=== PATIENT | female | born 1985 | race Asian ===

== ENCOUNTER 2017-05-25 03:43 | Emergency (ER) | payer OTHER | END 2017-05-25 05:19 | disposition home or self-care (01) | LOC: ERS 03:43 | DX: J02.9 Acute pharyngitis, unspecified (principal) | CPT/HCPCS: 87081; 87430; 99283 ==

== ENCOUNTER 2017-05-27 12:12 | Emergency (ER) | payer OTHER ==
[2017-05-27 12:40] LABS: #Basophils 0.1 thou/uL (0.0-0.2); #Eosinphils 0.1 thou/uL (0.0-0.7); #Lymphocytes 4.8 thou/uL (1.20-3.40); #Monocytes 0.8 thou/uL (0.11-0.59); #Neutrophils 4.9 thou/uL (1.40-6.50); %Basophils 1.1 % (0.0-1.0); %Eosinophils 0.9 % (0.0-10.0); %Lymphocytes 44.9 % (21.0-51.0); %Monocytes 7.6 % (0.0-10.0); %Neutrophils 45.5 % (42.0-75.0); Hemoglobin 12.5 g/dL (12.0-16.0); Mean Corpuscular HGB CONC 32.4 g/dL (32.0-36.0); Mean Corpuscular Hemoglobin 28.1 pg (27.0-31.0); Mean Corpuscular Volume 86.7 fl (81.0-99.0); Mean Platelet Volume 8.1 fL (7.4-10.4); Platelet Count 303 thou/uL (130-400); RBC Distribution Width 11.9 % (11.5-14.5); Red Blood Cell (RBC) Count 4.47 mill/uL (4.20-5.40); White Blood Cell (WBC) Count 10.7 thou/uL (4.8-10.8)
[2017-05-27 13:01] LABS: BHCG - Serum Negative (NEGATIVE); Pregs Control Background? CLEAR/WHITE (CLR/WHITE); Pregs Control Bar Appear? YES (CONTROL BAR)
== END 2017-05-27 15:09 | disposition home or self-care (01) ==
LOC: ERS 12:12
DX: N39.0 Urinary tract infection, site not specified (principal); N93.9 Abnormal uterine and vaginal bleeding, unspecified
CPT/HCPCS: 36415; 84703; 85025; 99284

== ENCOUNTER 2019-12-27 09:15 | Inpatient (IN) | payer BC, MEDICAID, OTHER ==
[2019-12-27 10:19] VITALS: BMI 26.4
[2019-12-27] MEDS ORDERED: Ondansetron PF 4 MG/2 ML Vial IVP PRN ×3 (10:23→18:50)
[2019-12-27] MEDS ORDERED: Promethazine HCl 25 MG/ML VIAL IM PRN ×2 (10:23→17:57)
[2019-12-27] MEDS ORDERED: hydrALAZINE 20 MG/ML VIAL SLOW IVP PRN ×2 (10:23→18:50)
[2019-12-27] MEDS ORDERED: CEFAZOLIN 2 GM in Premix Bag 1 BAG IVPB SCH (10:30)
[2019-12-27] MEDS ORDERED: Bicitra 30 ML UDCUP PO SCH (10:30)
[2019-12-27 11:07] LABS: Mean Corpuscular HGB CONC 34.5 g/dL (32.0-36.0); Mean Corpuscular Hemoglobin 30.6 pg (27.0-31.0); Mean Corpuscular Volume 88.5 fL (78.0-98.0); Mean Platelet Volume 9.8 fL (7.4-10.4); Platelet Count 244 thou/uL (130-400); RBC Distribution Width 12.4 % (11.5-14.5); Red Blood Cell (RBC) Count 4.57 mill/uL (4.20-5.40); White Blood Cell (WBC) Count 9.4 thou/uL (4.8-10.8)
[2019-12-27 11:43] LABS: HBSAg Index 0.18 S/CO (0-0.99); Hep B Surf Ag Non-Reactive S/CO (NonReactive); Syphilis Antibody Nonreactive (Nonreactive); Syphilis Antibody Index 0.03 S/CO (<1.00 Non-Reactive)
[2019-12-27 12:43] LABS: INR-International Normal Ratio 0.8; Prothrombin Time 10.9 sec (12.0-14.7)
[2019-12-27 12:44] LABS: PTT 27.3 sec (22.9-36.1)
[2019-12-27 13:13] LABS: ALT (SGPT) 476 U/L (8-55); AST (SGOT) 200 U/L (5-34); Albumin 3.8 g/dL (3.5-5.0); Alkaline Phosphatase 280 U/L (40-110); Anion Gap 16 mmol/L (10-20); BUN (Urea Nitrogen) 4 mg/dL (7.0-18.7); Bilirubin, Total 1.2 mg/dL (0.2-1.2); Calc. Creatinine Clearance 159 mL/min (70-130); Calcium 9.3 mg/dL (7.8-10.44); Carbon Dioxide 19 mmol/L (22-29); Chloride 108 mmol/L (98-107); Estimated GFR-MDRD Greater than 90; Globulin 3.4 g/dL (2.4-3.5); Glucose 80 mg/dL (70-105); Protein, Total 7.2 g/dL (6.0-8.3); Sodium 139 mmol/L (136-145)
[2019-12-27] MEDS: Lactated Ringer's 1,000 ML IV SCH ×2 (13:32→22:20)
[2019-12-27] MEDS ORDERED: Fentanyl 100 MCG/2 ML VIAL ONE (16:07)
[2019-12-27] MEDS ORDERED: MORPHINE 5 MG/10 ML PF VIAL ONE (16:07)
--- NOTE | 2019-12-27 16:07 | PDOC.LDHP ---
Labor and Delivery H&P Chief complaint: other (elevated LFT and itching) HPI: 34yo at 38w3d by LMP sent from home due to lab finding of elevated LFTs in 400s and new onset palmar itching. Denies sx PIH. Current gestational age (weeks): 38 Due date: 01/07/20 Dating criteria: last menstrual period Grav: 3 Para: 1 Current complications: none Abnormal US findings: No Past Medical History: denies Current medications: pre-ellie vitamins Previous surgical history: low tranverse CS Allergies/Adverse Reactions: Allergies Allergy/AdvReac Type Severity Reaction Status Date / Time No Known Allergies Allergy Verified 12/27/19 10:05 Social history: none - Physical Exam Vital signs reviewed and normal: yes General: NAD Heart: RRR Lungs: CTAB Abdomen: gravid Extremeties: no edema FHT: category 1 Falls View contractions every: none - OB Labs Blood type: A RH: positive Antibody Screen: negative HIV: negative RPR: negative HEPSAg: negative 1 hour GCT: negative GBS: negative Urine drug screen: negative - Assessment L&D Assessment: medically indicated induction (repeat CS) - Plan Plan: admit to L&D, to OR for section, informed consent obtained, anesthesia consult for pain management
[2019-12-27] MEDS ORDERED: Dexamethasone 4 mg/ml Vial ONE (16:08)
[2019-12-27] MEDS ORDERED: Oxytocin 10 UNITS/ML VIAL ONE ×2 (16:08→16:09)
[2019-12-27] MEDS ORDERED: PHENYLEPHRINE-NS 100 MCG/ML 10 ML SYRINGE ONE (16:08)
[2019-12-27] MEDS ORDERED: Ketorolac Tromethamine 30 MG/ML VIAL ONE (16:08)
[2019-12-27] MEDS ORDERED: EPHEDRINE 25 MG/5 ML SYRINGE ONE (16:08)
[2019-12-27] MEDS ORDERED: Ondansetron PF 4 MG/2 ML Vial ONE (16:09)
--- NOTE | 2019-12-27 17:02 | PDOC.OPDEL ---
OB Operative/Delivery Note Delivery Dr/Surgeon: Eliezer Assist: Charlie Pre-Delivery Diagnosis: medically indicated induction (cholestasis) Procedure/Post Delivery Dx: repeat low transverse CS Weeks gestation: 38 Anesthesia: spinal - Additional Findings/Plan Placenta delivered: spontaneous findings: low transverse hysterotomy without extension, normal uterus, normal tubes, normal ovaries Post delivery plan: routine recovery
[2019-12-27] MEDS ORDERED: Methylergonovine 0.2 MG/ML VIAL ONE (17:26)
[2019-12-27] MEDS ORDERED: Ketorolac Tromethamine 30 MG/ML VIAL IVP PRN (17:57)
[2019-12-27] MEDS ORDERED: HYDROmorphone 2 MG/ML VIAL SLOW IVP PRN (17:57)
[2019-12-27] MEDS ORDERED: Ondansetron HCl/PF 4 MG/2 ML Vial IVP PRN (17:57)
[2019-12-27] MEDS ORDERED: Naloxone HCl 0.4 mg/ml Vial IV PRN (17:57)
[2019-12-27] MEDS ORDERED: Naloxone HCl 0.4 mg/ml Vial IVP PRN ×2 (17:57)
[2019-12-27] MEDS ORDERED: Meperidine HCl/PF 25 MG/ML VIAL SLOW IVP PRN (17:57)
[2019-12-27] MEDS ORDERED: diphenhydrAMINE 50 MG/ML VIAL IVP PRN (17:57)
[2019-12-27] MEDS ORDERED: L&D-Morphine 4 MG/ML VIAL SLOW IVP PRN (17:57)
[2019-12-27] MEDS ORDERED: Promethazine HCl 25 MG SUPP PR PRN (17:57)
[2019-12-27] MEDS ORDERED: Communication Order-Pharmacy FS SCH (18:00)
[2019-12-27] MEDS ORDERED: diphenhydrAMINE 25 MG CAP PO PRN (18:50)
[2019-12-27] MEDS ORDERED: Acetaminophen 325 MG TAB PO PRN (18:50)
[2019-12-27] MEDS ORDERED: HYDROcodone/Acetaminophen 5/325 mg Tablet PO PRN (18:50)
[2019-12-27] MEDS ORDERED: Bisacodyl 10 MG SUPP PR PRN (18:50)
[2019-12-27] MEDS ORDERED: Lanolin Ointment 7 GM TUBE TOP PRN (18:50)
[2019-12-27] MEDS: Docusate Calcium (SURFAK) 240 MG CAP PO SCH (22:19)
[2019-12-27] MEDS: Ferrous Sulfate 325 MG TAB PO SCH (22:20)
[2019-12-28 06:19] LABS: Hemoglobin 11.4 g/dL (12.0-16.0); Mean Corpuscular HGB CONC 33.5 g/dL (32.0-36.0); Mean Corpuscular Hemoglobin 29.9 pg (27.0-31.0); Mean Corpuscular Volume 89.2 fL (78.0-98.0); Mean Platelet Volume 9.5 fL (7.4-10.4); Platelet Count 211 thou/uL (130-400); RBC Distribution Width 12.3 % (11.5-14.5); Red Blood Cell (RBC) Count 3.83 mill/uL (4.20-5.40); White Blood Cell (WBC) Count 14.3 thou/uL (4.8-10.8)
[2019-12-28 06:41] LABS: ALT (SGPT) 556 U/L (8-55); AST (SGOT) 327 U/L (5-34); Albumin 2.8 g/dL (3.5-5.0); Alkaline Phosphatase 201 U/L (40-110); Anion Gap 14 mmol/L (10-20); BUN (Urea Nitrogen) 4 mg/dL (7.0-18.7); Bilirubin, Total 1.8 mg/dL (0.2-1.2); Calc. Creatinine Clearance 168 mL/min (70-130); Calcium 8.5 mg/dL (7.8-10.44); Carbon Dioxide 22 mmol/L (22-29); Chloride 104 mmol/L (98-107); Estimated GFR-MDRD Greater than 90; Globulin 2.7 g/dL (2.4-3.5); Glucose 66 mg/dL (70-105); Potassium 3.7 mmol/L (3.5-5.1); Protein, Total 5.5 g/dL (6.0-8.3); Sodium 136 mmol/L (136-145)
--- NOTE | 2019-12-28 07:47 | OP ---
DATE OF PROCEDURE: 12/27/2019 ADDENDUM: I was present and scrubbed to assist the uncomplicated repeat low-transverse with Dr. Gracie Martins. Please see her note for full details. Job ID: [id number]
--- NOTE | 2019-12-28 08:02 | PDOC.PP ---
Post Progress Note Post Day #: 1 PO intake tolerated: yes Flatus: yes Ambulation: no Vital Signs (12 hours) Temp Pulse Resp BP Pulse Ox 12/28/19 03:55 98.2 F 69 18 97/52 L 98 12/27/19 22:45 98.5 F 72 18 126/83 98 12/27/19 21:35 98.3 F 64 18 144/75 H 97 12/27/19 20:25 98.5 F 71 18 136/81 98 Weight Weight 154 lb - Physical Examination General: NAD Respiratory: non-labored breathing Abdominal: no distention, appropriately TTP Extremities: negative homans (B) Skin: CS incision dry & intact Neurological: no gross focal deficits Psychiatric: normal affect Result Diagrams: 12/28/19 05:59 12/28/19 05:59 Additional Labs: Post Labs Blood Type A POSITIVE 12/27/19 11:21 Hep Bs Antigen Non-Reactive S/CO (NonReactive) 12/27/19 10:55 - Assessment/Plan POD1 s/p RCS VSSAF Doing well, appropriate milestones, routine advances LFT trending down Hgb nl postop 11.4 Rh pos Rub unknown, pending cont postop care
--- NOTE | 2019-12-28 08:47 | OP ---
DATE OF PROCEDURE: 12/27/2019 PREOPERATIVE DIAGNOSES: 1. Intrauterine at 38 weeks and 3 days. 2. Suspected cholestasis. 3. Prior section x1, declines trial of labor. POSTOPERATIVE DIAGNOSES: 1. Intrauterine at 38 weeks and 3 days. 2. Suspected cholestasis. 3. Prior section x1, declines trial of labor. PROCEDURE PERFORMED: Repeat low-transverse section via Pfannenstiel skin incision. ANESTHESIA: Spinal. CLINICAL DERMATOLOGIST SURGEON: Patria Guerra MD ESTIMATED BLOOD LOSS: 463 mL. COMPLICATIONS: None. DRAINS: Brody catheter. PATHOLOGY: None. FINDINGS: Female , cephalic presentation, clear amniotic fluid, Apgars of 8 and 9, weighing 6 pounds and 6 ounces. Hysterotomy without extension. Normal uterus, ovaries, and tubes bilaterally. DESCRIPTION OF PROCEDURE: The patient was taken to the operating room, where spinal anesthesia was obtained without difficulty. The patient was prepped and draped in a sterile fashion in a dorsal supine position with leftward tilt. After ensuring adequacy of anesthesia, a Pfannenstiel skin incision was made and carried down to the underlying subcutaneous tissue with the knife. The fascia was nicked in the midline with a knife and carried laterally with Nuñez scissors. The superior aspect of the fascia was tented with 2 Ayleen's and dissected off the rectus with the Nuñez scissors. The inferior aspect of the fascia was tented with 2 Ayleen's and dissected off the rectus down to the pubic symphysis with the Nuñez scissors. The peritoneum was bluntly entered into and manually retracted. Minimal adhesions of the vesicouterine peritoneum to the lower uterine segment were taken down with the [place]ba[place]mita Pedro O retractor was placed and the vesicouterine peritoneum was further incised to take the bladder below the level of the lower uterine segment. The lower uterine segment was incised in a transverse fashion and extended with a Farfan maneuver. The infant's head was brought to the hysterotomy and delivered atraumatically with fundal pressure. The infant's cord was clamped and handed to awaiting PD Team. Cord blood was obtained. This placenta was allowed to spontaneously deliver. The uterus was exteriorized, cleared of all clots and debris and was noted to be boggy. Methergine was called for. The uterus was placed back into the abdomen and hysterotomy was repaired with #1 Monocryl in a running locking fashion with excellent hemostasis noted. Uterine tone improved with infusion of Pitocin and Methergine. Irrigation was performed of the pelvis and suctioned. Hemostasis was again noted. The Pedro O retractor was removed and the rectus muscles were examined and noted to be hemostatic. The fascia was reapproximated with 0 PDS x2 sutures with excellent reapproximation. The subcutaneous tissue was irrigated and cauterized of any bleeders and reapproximated with 2-0 plain gut in a running fashion. Additional releasing of the skin was performed with the Bovie cautery and the skin was closed with 4-0 Monocryl in a subcuticular fashion. Dermabond was applied as well as a pressure dressing. The patient tolerated the procedure well. Sponge, lap, and needle counts correct x2. The patient was taken to recovery room in stable condition. The patient received Ancef 2 g prior to the procedure. Job ID: [id number]
[2019-12-28] MEDS ORDERED: Adacel (T-DAP) 0.5 ML SYRINGE IM ONE (09:00)
[2019-12-28] MEDS: HYDROcodone/Acetaminophen 5/325 mg Tablet PO PRN ×2 (09:08→14:49)
[2019-12-28] MEDS: Simethicone Chewable 80 MG TAB PO PRN ×2 (09:08→14:48)
[2019-12-28] MEDS: Prenatal Vitamin 1 TAB PO SCH (09:09)
[2019-12-28] MEDS: Docusate Calcium (SURFAK) 240 MG CAP PO SCH ×2 (09:09→21:32)
[2019-12-28] MEDS: Ferrous Sulfate 325 MG TAB PO SCH ×2 (09:09→23:46)
[2019-12-28 13:54] LABS: SARS-CoV-2 MS2 Positive; SARS-CoV-2 N Gene Negative; SARS-CoV-2 S Gene Negative; SARS-CoV-2 by NAA Not Detected (NotDetected); SARS-CoV-2 orf1ab Negative
[2019-12-28] MEDS: Ibuprofen 800 MG TAB PO SCH ×2 (14:29→21:32)
[2019-12-29] MEDS: Simethicone Chewable 80 MG TAB PO PRN (01:18)
[2019-12-29] MEDS: Ibuprofen 800 MG TAB PO SCH (05:19)
[2019-12-29 08:41] VITALS: BP 117/72; TEMP 97.8
[2019-12-29] MEDS: Docusate Calcium (SURFAK) 240 MG CAP PO SCH (09:00)
[2019-12-29] MEDS: Prenatal Vitamin 1 TAB PO SCH (09:00)
[2019-12-29] MEDS: Ferrous Sulfate 325 MG TAB PO SCH (09:01)
[2019-12-29] MEDS: HYDROcodone/Acetaminophen 5/325 mg Tablet PO PRN (09:04)
--- NOTE | 2019-12-29 09:27 | PDOC.PP ---
Post Progress Note Post Day #: 2 PO intake tolerated: yes Flatus: yes Ambulation: yes Vital Signs (12 hours) Temp Pulse Resp BP Pulse Ox 12/29/19 07:41 97.8 F 77 16 117/72 98 12/29/19 01:10 98.3 F 73 16 112/65 12/28/19 21:28 97.6 F 87 16 103/61 98 Weight Weight 154 lb - Physical Examination General: NAD Respiratory: non-labored breathing Abdominal: no distention, appropriately TTP Fundus firm & at: umb-2 Extremities: negative homans (B) Skin: no rash Neurological: no gross focal deficits Psychiatric: normal affect Result Diagrams: 12/28/19 05:59 12/28/19 05:59 Additional Labs: Post Labs Blood Type A POSITIVE 12/27/19 11:21 Hep Bs Antigen Non-Reactive S/CO (NonReactive) 12/27/19 10:55 - Assessment/Plan PPD2 s/p RCS at 38w 2/2 cholestasis Bile acids 71, LFTs elevated, recheck today, will trend as outpt to ensure normalization Met all postop milestones Advised to cont PNV on DC DC home FU 2 weeks
[2019-12-29 10:17] LABS: ALT (SGPT) 546 U/L (8-55); AST (SGOT) 243 U/L (5-34); Albumin 2.8 g/dL (3.5-5.0); Alkaline Phosphatase 176 U/L (40-110); Anion Gap 13 mmol/L (10-20); BUN (Urea Nitrogen) 9 mg/dL (7.0-18.7); Bilirubin, Total 0.8 mg/dL (0.2-1.2); Calc. Creatinine Clearance 151 mL/min (70-130); Calcium 8.6 mg/dL (7.8-10.44); Carbon Dioxide 21 mmol/L (22-29); Chloride 107 mmol/L (98-107); Estimated GFR-MDRD Greater than 90; Globulin 2.8 g/dL (2.4-3.5); Glucose 104 mg/dL (70-105); Potassium 3.5 mmol/L (3.5-5.1); Protein, Total 5.6 g/dL (6.0-8.3); Sodium 137 mmol/L (136-145)
== END 2019-12-29 12:26 | disposition home or self-care (01) | DRG 786 ==
LOC: L&D-LIB 09:15 → L&D 20:04 → 3SW 21:06
PROVIDERS: ADMIT Student in an Organized Health Care Education/Training Program; ATTEND Student in an Organized Health Care Education/Training Program
PROC: 10D00Z1 Extraction of Products of Conception, Low, Open Approach (ICD-10-PCS; principal; 2019-12-27)
DX: O26.62 Liver and biliary tract disorders in childbirth (principal); K83.1 Obstruction of bile duct; O34.211 Maternal care for low transverse scar from previous cesarean delivery; Z20.828 Contact with and (suspected) exposure to other viral communicable diseases; Z3A.38 38 weeks gestation of pregnancy; Z37.0 Single live birth
CPT/HCPCS: 36415; 51702; 80053; 82239; 85027; 85610; 85730; 86762; 86780; 86850; 86900; 86901; 87340; 87635; J0690; J1100; J1200; J1885; J2210; J2274; J2405; J2590; J3010; Q0163; U0003

== ENCOUNTER 2020-05-06 16:47 | Emergency (ER) | payer BC, MEDICAID, OTHER ==
[2020-05-06 22:06] LABS: SARS-CoV-2 MS2 Positive; SARS-CoV-2 N Gene Positive; SARS-CoV-2 S Gene Positive; SARS-CoV-2 by NAA DETECTED (NotDetected); SARS-CoV-2 orf1ab Positive
== END 2020-05-06 17:42 | disposition home or self-care (01) ==
LOC: ERS 16:47
DX: U07.1 COVID-19 (principal)
CPT/HCPCS: 87635; 99283; U0003